=== PATIENT | male | born 2000 | race Caucasian/White ===

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

== ENCOUNTER 2019-03-30 00:27 | Emergency (ER) | payer OTHER ==
[~2019-03-30] VITALS: Ht 175.3 cm; Wt 63.0 kg
[2019-03-30 00:43] VITALS: Ht 175.3 cm; Wt 63.0 kg
[2019-03-30 03:08] VITALS: BP 120/66
== END 2019-03-30 03:08 | disposition home or self-care (01) ==
LOC: ED 00:27
DX: G44.209 Tension-type headache, unspecified, not intractable (principal); H81.10 Benign paroxysmal vertigo, unspecified ear
CPT/HCPCS: 82962; J1885; J8597

== ENCOUNTER 2019-09-11 15:56 | Emergency (ER) | payer OTHER ==
[~2019-09-11] VITALS: Ht 172.7 cm; Wt 63.0 kg
[2019-09-11 15:59] VITALS: Ht 172.7 cm; Wt 63.0 kg
[2019-09-11 18:24] VITALS: BP 127/54
== END 2019-09-11 18:25 | disposition home or self-care (01) ==
LOC: ED 15:56
DX: R30.0 Dysuria (principal); Z11.3 Encounter for screening for infections with a predominantly sexual mode of transmission
CPT/HCPCS: 87491; 87591; J0696

== ENCOUNTER 2019-10-03 22:33 | Emergency (ER) | payer OTHER ==
[~2019-10-03] VITALS: Ht 172.7 cm; Wt 63.5 kg
[2019-10-03 22:39] VITALS: Ht 172.7 cm; Wt 63.5 kg
[2019-10-03 23:27] LABS: BASOPHIL % 0.4 % (0-2); PLATELET COUNT 210 x10^3mcL (130-400); RED CELL DISTRIBUTION WIDTH 13.3 % (11.5-14.5)
[2019-10-03 23:49] LABS: CALCIUM 8.8 mg/dL (8.5-10.1); CARBON DIOXIDE 29.8 mmol/L (21-32); CHLORIDE SERUM 105 mmol/L (98-107); GFR1 > 60 mL/min; GLUCOSE SERUM 84 mg/dL (74-106); POTASSIUM SERUM 3.8 mmol/L (3.5-5.1); SODIUM SERUM 143 mmol/L (136-145)
[2019-10-03 23:52] LABS: ALBUMIN 4.2 g/dL (3.4-5.0); ALKALINE PHOSPHATASE 67 U/L (46-116); ALT/SGPT 29 U/L (16-63); AST/SGOT 21 U/L (15-37); BILIRUBIN TOTAL 0.4 mg/dL (0.20-1.00); TOTAL PROTEIN, SERUM 7.9 g/dL (6.4-8.2)
[2019-10-04 00:28] VITALS: BP 115/63
== END 2019-10-04 00:28 | disposition home or self-care (01) ==
LOC: ED 22:33
PROVIDERS: Emergency Medicine
DX: K62.5 Hemorrhage of anus and rectum (principal); K62.89 Other specified diseases of anus and rectum; R10.30 Lower abdominal pain, unspecified
CPT/HCPCS: 36415

== ENCOUNTER 2020-05-01 17:29 | Emergency (ER) | payer OTHER ==
[~2020-05-01] VITALS: Ht 172.7 cm; Wt 63.5 kg
[2020-05-01 17:48] VITALS: Ht 172.7 cm; Wt 63.5 kg
[2020-05-01 22:13] LABS: microscopic required? NO
[2020-05-01 22:19] LABS: UA SPECIFIC GRAVITY 1.015 (1.005-1.035); urine erythrocyte NEGATIVE (NEGATIVE)
[2020-05-01 22:38] VITALS: BP 119/72
== END 2020-05-01 22:38 | disposition home or self-care (01) ==
LOC: ED 17:29
PROVIDERS: Specialist
DX: R36.1 Hematospermia (principal); Z86.39 Personal history of other endocrine, nutritional and metabolic disease
CPT/HCPCS: 87491; 87591

== ENCOUNTER 2020-05-06 16:51 | Emergency (ER) | payer OTHER ==
[~2020-05-06] VITALS: Ht 175.3 cm; Wt 62.6 kg
[2020-05-06 16:55] VITALS: Ht 175.3 cm; Wt 62.6 kg
[2020-05-06 20:47] LABS: BASOPHIL % 0.4 % (0-2); PLATELET COUNT 224 x10^3mcL (130-400); RED CELL DISTRIBUTION WIDTH 12.8 % (11.5-14.5)
[2020-05-06 21:09] LABS: CALCIUM 9.2 mg/dL (8.5-10.1); CARBON DIOXIDE 29.5 mmol/L (21-32); CHLORIDE SERUM 102 mmol/L (98-107); GFR1 > 60 mL/min; GLUCOSE SERUM 87 mg/dL (74-106); POTASSIUM SERUM 4.1 mmol/L (3.5-5.1); SODIUM SERUM 139 mmol/L (136-145)
[2020-05-06 21:13] LABS: ALBUMIN 4.6 g/dL (3.4-5.0); ALKALINE PHOSPHATASE 53 U/L (46-116); ALT/SGPT 24 U/L (16-63); AST/SGOT 17 U/L (15-37); BILIRUBIN TOTAL 0.5 mg/dL (0.20-1.00)
[2020-05-06 21:17] LABS: TOTAL PROTEIN, SERUM 8.5 g/dL (6.4-8.2)
[2020-05-06 23:11] VITALS: BP 119/76
== END 2020-05-06 23:11 | disposition home or self-care (01) ==
LOC: ED 16:51
PROVIDERS: Emergency Medicine
DX: S39.011A Strain of muscle, fascia and tendon of abdomen, initial encounter (principal); X58.XXXA Exposure to other specified factors, initial encounter; Y93.89 Activity, other specified; Y92.89 Other specified places as the place of occurrence of the external cause; Y99.8 Other external cause status
CPT/HCPCS: 36415; 87491; 87591; Q0092

== ENCOUNTER 2020-06-23 04:24 | Emergency (ER) | payer OTHER ==
[~2020-06-23] VITALS: Ht 172.7 cm; Wt 62.8 kg
[2020-06-23 04:30] VITALS: Ht 172.7 cm; Wt 62.8 kg
[2020-06-23 06:26] VITALS: BP 113/61
== END 2020-06-23 06:26 | disposition home or self-care (01) ==
LOC: ED 04:24
DX: G89.29 Other chronic pain (principal); R10.9 Unspecified abdominal pain

== ENCOUNTER 2020-06-29 20:09 | Emergency (ER) | payer OTHER ==
[~2020-06-29] VITALS: Ht 175.3 cm; Wt 60.3 kg
[2020-06-29 20:22] VITALS: Ht 175.3 cm; Wt 60.3 kg
[2020-06-29 22:42] VITALS: BP 113/62
== END 2020-06-29 22:30 | disposition home or self-care (01) ==
LOC: ED 20:09
DX: S00.83XA Contusion of other part of head, initial encounter (principal); Y04.8XXA Assault by other bodily force, initial encounter; Y93.89 Activity, other specified; Y92.89 Other specified places as the place of occurrence of the external cause; Y99.8 Other external cause status
CPT/HCPCS: J1885

== ENCOUNTER 2020-10-28 22:45 | Emergency (ER) | payer OTHER ==
[~2020-10-28] VITALS: Ht 175.3 cm; Wt 76.7 kg
[2020-10-28 22:59] VITALS: BP 106/69
== END 2020-10-29 01:10 | disposition home or self-care (01) ==
LOC: ED 22:45
DX: F41.9 Anxiety disorder, unspecified (principal)